=== PATIENT | male | born 1980 | race Caucasian/White ===

== ENCOUNTER 2023-03-02 10:30 | Emergency (ER) | payer MEDICAID, OTHER ==
[~2023-03-02] VITALS: Ht 160 cm; Wt 81.6 kg
[2023-03-02 10:52] VITALS: BP 114/74; PULSE 80; RESP 16; TEMP 97.9; O2SAT 100
[2023-03-02] MEDS ORDERED: NAPR-54 PO (13:17)
== END 2023-03-02 13:37 | disposition home or self-care (01) ==
LOC: MED 10:30
DX: S93.402A Sprain of unspecified ligament of left ankle, initial encounter (principal); Z79.899 Other long term (current) drug therapy; X50.1XXA Overexertion from prolonged static or awkward postures, initial encounter; Y93.89 Activity, other specified; Y92.89 Other specified places as the place of occurrence of the external cause; Y99.8 Other external cause status
CPT/HCPCS: 73610; 99283